=== PATIENT | female | born 1960 | race Caucasian/White ===

== ENCOUNTER 2022-05-17 16:00 | Emergency (ER) | payer BC ==
[2022-05-17 16:10] VITALS: BP 138/73; PULSE 76; RESP 18; TEMP 98; BMI 34.2
== END 2022-05-17 16:33 | disposition home or self-care (01) ==
LOC: JERFT 16:00
DX: H00.025 Hordeolum internum left lower eyelid (principal)
CPT/HCPCS: 99283-25

== ENCOUNTER 2023-12-25 12:10 | Inpatient (IN) | payer BC ==
[2023-12-25] MEDS ORDERED: ACETAMINOPHEN INJECTION 100 ML IVPB ONE (12:50)
[2023-12-25] MEDS ORDERED: FAMOTIDINE 20 MG/50 ML IVPB 20 MG/50 ML MG IVPB ONE (12:50)
[2023-12-25] MEDS: ACETAMINOPHEN 1000 MG/100 ML BAG IVPB ONE (13:14)
[2023-12-25] MEDS: MAG HYDROX/AL HYDROX/SIMETH 30 ML UNIT-DOSE CUP PO ONE (13:14)
[2023-12-25] MEDS: FAMOTIDINE 20 MG/50 ML IVPB 20 MG/50 ML MG IVPB ONE (13:14)
[2023-12-25] MEDS: LACTATED RINGERS SOLUTION 1000 ML INFUS.BAG IV ONE (13:14)
[2023-12-25 13:16] LABS: BASO % 0.4 % (0-2.0); EOS % 0.1 % (0-4.5); HEMATOCRIT 43.8 % (32.4-45.2); HEMOGLOBIN 14.8 GM/dL (10.7-15.3); MCH 29.8 pg (25.7-33.7); MCHC 33.8 g/dl (32.0-36.0); MEAN CELL VOLUME 88.1 fl (80-96); MEAN PLT VOLUME 11.1 fl (7.5-11.1); MONO % 7.1 % (3.8-10.2); NEUT % 82.4 % (42.8-82.8); PLATELET COUNT 279 10^3/uL (134-434); RBC 4.97 M/mm3 (3.60-5.2); RDW 13.8 % (11.6-15.6); WHITE BLOOD COUNT 16.1 K/mm3 (4.0-10.0)
[2023-12-25 13:24] LABS: INR 1.04 (0.83-1.09); PROTHROMBIN TIME (PATIENT) 11.9 SEC (9.7-13.0)
[2023-12-25] MEDS ORDERED: MAG HYDROX/AL HYDROX/SIMETH 30 ML UNIT-DOSE CUP ONE (13:24)
[2023-12-25 13:52] LABS: POTASSIUM 4.3 mmol/L (3.5-5.1)
[2023-12-25 13:55] LABS: ALBUMIN 4.4 g/dl (3.4-5.0); BLOOD UREA NITROGEN 15.9 mg/dL (7-18)
[2023-12-25 13:59] LABS: BILIRUBIN,TOTAL 0.8 mg/dL (0.2-1); TOT PROT 8.1 g/dl (6.4-8.2)
[2023-12-25 14:04] LABS: CREATININE 0.7 mg/dL (0.55-1.3)
[2023-12-25] MEDS ORDERED: CEFTRIAXONE 1 GM/50 ML BAG ONE (15:02)
[2023-12-25] MEDS ORDERED: PIPERACILLIN/TAZOB 4.5 GM 4.5 GM/100 ML BAG IVPB ONE (15:12)
[2023-12-25] MEDS: PIPERACILLIN/TAZOB 4.5 GM 4.5 GM in DEXTROSE 5%-WATER 100 ML IVPB ONE (15:19)
[2023-12-25] MEDS ORDERED: morphine SULFATE 4 MG/ML VIAL ONE (15:39)
[2023-12-25] MEDS: morphine CARPU-JECT 4 MG/1 ML DISP.SYRIN IVPUSH ONE (15:47)
[2023-12-25] MEDS ORDERED: ONDANSETRON 4 MG/2 ML VIAL IVPUSH PRN (16:41)
[2023-12-25] MEDS: SODIUM CHLORIDE 1,000 ML IV SCH (17:13)
[2023-12-25 20:28] VITALS: RESP 18; BMI 31.6
[2023-12-25] MEDS: PIPERACILLIN/TAZOB 3.375 GM 3.375 GM in DEXTROSE 5%-WATER - 50 ML IVPB SCH (20:40)
[2023-12-26] MEDS: ACETAMINOPHEN 1000 MG/100 ML BAG IVPB PRN (07:45)
[2023-12-26 07:49] LABS: HEMATOCRIT 39.9 % (32.4-45.2); HEMOGLOBIN 13.2 GM/dL (10.7-15.3); MCH 29.6 pg (25.7-33.7); MEAN CELL VOLUME 89.5 fl (80-96); MEAN PLT VOLUME 10.8 fl (7.5-11.1); PLATELET COUNT 251 10^3/uL (134-434); RBC 4.46 M/mm3 (3.60-5.2); RDW 13.7 % (11.6-15.6); WHITE BLOOD COUNT 16.7 K/mm3 (4.0-10.0)
[2023-12-26 08:04] LABS: POTASSIUM 3.3 mmol/L (3.5-5.1)
[2023-12-26 08:08] LABS: BLOOD UREA NITROGEN 12.6 mg/dL (7-18); CALCIUM 8.6 mg/dL (8.5-10.1)
[2023-12-26 08:09] LABS: ALBUMIN 3.7 g/dl (3.4-5.0)
[2023-12-26 08:11] LABS: CREATININE 0.9 mg/dL (0.55-1.3)
[2023-12-26 08:13] LABS: BILIRUBIN,TOTAL 0.9 mg/dL (0.2-1); TOT PROT 6.9 g/dl (6.4-8.2)
[2023-12-26] MEDS ORDERED: BUPIVACAINE HCL/PF 0.25% (2.5MG/ML) 10 ML VIAL ONE (12:22)
[2023-12-26] MEDS ORDERED: cefOXitin SODIUM 2 GM VIAL (RESTRICTED TO ID) IVPB ONE (12:22)
[2023-12-26] MEDS ORDERED: HEPARIN NA (PORCINE) 5,000 UNITS/ML 1ML VIAL ONE (12:22)
[2023-12-26] MEDS ORDERED: CEFTRIAXONE 1,000 GM in DEXTROSE 5%-WATER - 50 ML IVPB ONE (16:44)
[2023-12-26] MEDS: PIPERACILLIN/TAZOB 3.375 GM 3.375 GM in DEXTROSE 5%-WATER - 50 ML IVPB SCH (17:00)
[2023-12-26] MEDS: POTASSIUM CHLORIDE ORAL LIQUID 20 MEQ/15 ML PO ONE (17:03)
[2023-12-26] MEDS: CEFTRIAXONE 1 GM in DEXTROSE 5%-WATER - 50 ML IVPB ONE (18:13)
[2023-12-26] MEDS: CEFTRIAXONE 1,000 GM in DEXTROSE 5%-WATER - 50 ML IVPB ONE (18:15)
[2023-12-27] MEDS ORDERED: ONDANSETRON 4 MG/2 ML VIAL ONE (10:23)
[2023-12-27] MEDS ORDERED: PROPOFOL 20 ML ONE (10:23)
[2023-12-27] MEDS ORDERED: FENTANYL CITRATE/PF 50 MCG/ML VIAL ONE ×4 (10:23→12:38)
[2023-12-27] MEDS ORDERED: DEXAMETHASONE SOD PHOSPHATE 4 MG/1 ML VIAL ONE ×2 (10:23→10:54)
[2023-12-27] MEDS ORDERED: ROCURONIUM BROMIDE 50 MG/5 ML SYRINGE ONE (10:23)
[2023-12-27] MEDS ORDERED: MIDAZOLAM HCL 2 MG/2 ML SINGLE DOSE VIAL ONE (10:23)
[2023-12-27] MEDS ORDERED: SUCCINYLCHOLINE CHLORIDE 200 MG/10 ML SYRINGE ONE (10:23)
[2023-12-27] MEDS ORDERED: LIDOCAINE HCL/PF 2% SDV 5ML VIAL ONE (10:23)
[2023-12-27] MEDS ORDERED: INDOCYANINE GREEN 25 MG/10 ML VIAL IVPUSH ONE (10:28)
[2023-12-27] MEDS ORDERED: BUPIVACAINE HCL/PF 0.25% (2.5MG/ML) 10 ML VIAL ONE (10:28)
[2023-12-27] MEDS ORDERED: SUGAMMADEX SODIUM 200 MG/2 ML VIAL ONE (10:40)
[2023-12-27] MEDS ORDERED: cefOXitin SODIUM 2 GM VIAL (RESTRICTED TO ID) IVPB ONE (10:49)
[2023-12-27] MEDS: cefOXitin SODIUM 2 GM VIAL (RESTRICTED TO ID) IVPB ONE (10:50)
[2023-12-27] MEDS ORDERED: KETOROLAC TROMETHAMINE 30 MG/1 ML VIAL ONE (11:55)
[2023-12-27] MEDS ORDERED: ONDANSETRON 4 MG/2 ML VIAL IVPUSH PRN ×2 (12:19→13:12)
[2023-12-27] MEDS ORDERED: oxyCODONE HCL 5 MG TABLET PO PRN ×4 (12:19→13:12)
[2023-12-27] MEDS ORDERED: LACTATED RINGERS SOLUTION 1,000 ML IV SCH (12:30)
[2023-12-27] MEDS ORDERED: ACETAMINOPHEN 1000 MG/100 ML BAG IVPB PRN (13:12)
[2023-12-27] MEDS ORDERED: PIPERACILLIN/TAZOB 3.375 GM 3.375 GM in DEXTROSE 5%-WATER - 50 ML IVPB SCH (13:15)
[2023-12-27] MEDS: SODIUM CHLORIDE 1,000 ML IV SCH (13:35)
[2023-12-27] MEDS: KETOROLAC TROMETHAMINE 15 MG/ML VIAL IVPUSH SCH (13:52)
[2023-12-27] MEDS: PIPERACILLIN/TAZOB 3.375 GM 3.375 GM in DEXTROSE 5%-WATER - 50 ML IVPB SCH (17:14)
[2023-12-28 08:23] LABS: POTASSIUM 3.6 mmol/L (3.5-5.1)
[2023-12-28 08:29] LABS: BLOOD UREA NITROGEN 13.2 mg/dL (7-18); CALCIUM 8.6 mg/dL (8.5-10.1)
[2023-12-28 08:30] LABS: ALBUMIN 3.2 g/dl (3.4-5.0)
[2023-12-28 08:33] LABS: CREATININE 0.8 mg/dL (0.55-1.3)
[2023-12-28 08:34] LABS: BILIRUBIN,TOTAL 0.6 mg/dL (0.2-1); TOT PROT 6.6 g/dl (6.4-8.2)
[2023-12-28 08:46] LABS: BASO % 0.1 % (0-2.0); EOS % 0.1 % (0-4.5); HEMATOCRIT 37.3 % (32.4-45.2); HEMOGLOBIN 12.1 GM/dL (10.7-15.3); MCH 29.3 pg (25.7-33.7); MCHC 32.5 g/dl (32.0-36.0); MEAN CELL VOLUME 89.9 fl (80-96); MEAN PLT VOLUME 11.3 fl (7.5-11.1); MONO % 4.5 % (3.8-10.2); NEUT % 85.3 % (42.8-82.8); PLATELET COUNT 262 10^3/uL (134-434); RBC 4.15 M/mm3 (3.60-5.2); RDW 13.5 % (11.6-15.6); WHITE BLOOD COUNT 15.3 K/mm3 (4.0-10.0)
[2023-12-28 10:49] VITALS: BP 130/63; PULSE 81; TEMP 98.3
== END 2023-12-28 12:51 | disposition home or self-care (01) | DRG 419 ==
LOC: JER 12:10 → JERBED 15:42 → J6S 18:42
PROVIDERS: ADMIT Internal Medicine; ATTEND Internal Medicine
PROC: 0FT44ZZ Resection of Gallbladder, Percutaneous Endoscopic Approach (ICD-10-PCS; principal; 2023-12-27 10:30)
DX: K80.00 Calculus of gallbladder with acute cholecystitis without obstruction (principal); K82.A1 Gangrene of gallbladder in cholecystitis
CPT/HCPCS: 36415; 76705-TC; 80053; 83690; 85025; 85027; 85610; 86850; 86900; 86901; 88304-TC; 94760; 99285-25; J0131; J1644